=== PATIENT | male | born 1950 ===

== ENCOUNTER 2017-06-24 18:12 | Inpatient (IN) | payer MEDICARE, OTHER ==
[2017-06-24] VITALS (9 sets, daily range): BP systolic 127–149; BP diastolic 58–93; BMI 33.5
[~2017-06-24] VITALS: Ht 180.3 cm; Wt 110.0 kg
--- NOTE | ~2017-06-24 | CN ---
PATIENT NAME:AUGUSTINA FLOWERS MEDICAL RECORD: [id number] : 54 LOCATION:[id number] ADMIT DATE: 06/24/17 ACCOUNT: [id number] CONSULTING PHYSICIAN: RON HADLEY MD REFERRING PHYSICIAN: BRUNILDA JARRELL MD DATE OF CONSULTATION: 06/25/2017 HISTORY OF PRESENT ILLNESS: A 67-year-old gentleman transferred from outside hospital. He was seen there with about a 2-week history of feeling poorly, very inactive, fever, chills. He was found to have pulmonary embolus, subsequent AFib with RVR. He is currently on Cordarone drip. Pressures are stable. We are asked to see him concerning his cardiovascular status. PAST MEDICAL HISTORY: Includes; 1. History of hypertension. 2. Severe sinusitis, status post multiple interventions. 3. Gastroesophageal reflux disease. ALLERGIES: STADOL. MEDICATIONS: Include acyclovir 400 b.i.d., lisinopril 10 mg p.o. every day, aspirin 81 mg daily, Valium 10 mg p.o. t.i.d., methadone 30 mg t.i.d., Singulair 10 mg at bedtime, omeprazole 20 every day, and testosterone 30 mg every week. SOCIAL HISTORY: . He is a nonsmoker. Easily takes care of his ADLs regularly. REVIEW OF SYSTEMS: The patient reports easy bruising but reports no swollen glands. The patient reports no fever, no night sweats, no significant weight gain, no significant weight loss. No significant exercise tolerance. The patient reports no dry eyes, no irritation, no vision change. Patient reports no difficulty hearing and no ear pain. Patient reports no frequent nose bleeds or nose and sinus problems. Patient reports on arm pain on exertion. No shortness of breath while lying down. No history of heart murmur. Patient reports no cough, no wheezing or coughing up blood. Patient reports no abdominal pain, no vomiting. Normal appetite. No diarrhea and not vomiting blood. No nausea and no constipation. Patient reports no incontinence. No difficulty urinating. No hematuria. No increased frequency. Patient reports no muscle aches. No weakness, no arthralgias, no back pain. No swelling of the extremities. Patient reports no abnormal mole, no jaundice, no rashes. Reports no loss of consciousness. No weakness and no numbness. No seizures, dizziness, or headaches. The patient reports no depression, no sleep disturbance, feeling safe in a relationship and no alcohol abuse. Patient reports on fatigue. Reports no runny nose or sinus pressure. No itching, no hives, and no frequent sneezing. PHYSICAL EXAMINATION: GENERAL: Pleasant gentleman, in no acute distress, appears stated age. VITAL SIGNS: Blood pressure 131/77, pulse currently 91 and irregular. HEENT: Normocephalic, atraumatic. NECK: No JVD or bruit. HEART: Irregular. Rate is fairly well controlled. LUNGS: Good air excursion. ABDOMEN: Soft, nontender. EXTREMITIES: Pulses well preserved. There is no edema. CONSULT REPORT [id number] AUGUSTINA FLOWERS NEUROLOGIC: Grossly intact. DIAGNOSTIC DATA: ECG shows atrial fibrillation, no acute ST changes. IMPRESSION: Atrial fibrillation, rapid ventricular response, suspect this is secondary to right heart strain from the pulmonary embolus. I agree with current treatment with amiodarone. He will obviously need at least 6 months of NOAC therapy. We will load amiodarone and consider cardioversion at some point in time. TRANSINT:[id number] Voice Confirmation ID: [id number] DOCUMENT ID: [id number] RON HADLEY MD at 0823 CC: [id number] DICTATION DATE: 06/25/17 1131 FOAM TANK LAMINATOR: 06/25/17 1443 DIS IN 06/29/17 [place] [id number] [place] [id number]
--- NOTE | ~2017-06-24 | EC ---
PATIENT:AUGUSTINA FLOWERS DATE OF SERVICE: 06/24/17 SEX: M MEDICAL RECORD: [id number] DATE OF : 54 LOCATION:[place] [address] AGE OF PATIENT: 67 ADMISSION DATE: 06/24/17 REFERRING PHYSICIAN: INTERPRETING PHYSICIAN: RON HADLEY MD ECHOCARDIOGRAM REPORT ECHO CHARGES 4 ECHO COMPLETE CLINICAL DIAGNOSIS: PE/AFIB WITH RVR ECHOCARDIOGRAPHIC MEASUREMENTS (adult normal given) AC root (d.<3.7cm) 3.1 cm LV Septum d (<1.2 cm> 1.4 cm Valve Excursion 2. cm LV Septum (systole) 02.1 cm Left Atria (s.<4.0cm> 3.6 cm LVPW d(<1.2cm) 1.5 cm RV (d.<2.3cm) 3.6 cm LVPW (sytole) 1.9 cm LV diastole(<5.6CM) 4.4 cm MV E-F(>70mm/sec) cm LV systole 2.4 cm LVOT Diameter 1.9 cm MV exc.(>10mm) 1.4 cm Est.ejection fraction (50-75%) % Pericardial Effusion N DOPPLER: LVIT cm/sec A 101 cm/sec E cm/sec LA cm/sec RVSP 20 mmHg LVOT 86 cm/sec AOP1/2T m/s Asc. Ao 138 cm/sec RVOT 89 cm/sec RA cm/sec PA 128 cm/sec AV Gradient Peak 7.60 mmHg AV Mean 3.54 mmHg AV Area 2.1 cm MV Gradient Peak 5.69 mmHg MV Mean 2.23 mmHg MV Area cm COMMENTS: Mortar Mixer Operator: 2 DOMINGO MONSIVAIS Gate Technician: 3 Dr. Rincon TAPE# PACS DATE OF SERVICE: 06/25/2017 Adequate 2D echo, color flow and spectral Doppler, and M-mode. No LVH. LV internal dimensions are normal. Wall motion is normal. EF is greater than or equal to 55%. Aortic valve sclerosis without stenosis by Doppler interrogation. The left atrium is normal. Mitral valve shows no prolapse. Trace MR. Right-sided chambers grossly normal. Trace TR. TRANSINT:[id number] Voice Confirmation ID: [id number] DOCUMENT ID: [id number] ECHOCARDIOGRAM REPORT [id number] AUGUSTINA FLOWERS 06/29/2017 Edited to correct date of service, dmm. RON HADLEY MD at 0823 CC: [id number] DICTATION DATE: 06/26/17 1050 FINAL CLEANER: 06/26/17 1255 DIS IN 06/29/17 [place] [id number] [place] [id number]
[2017-06-24] MEDS ORDERED: VITAMIN B-1000 MCG/M IM (22:37)
[2017-06-24] MEDS ORDERED: AXIRON30 MG/1.5 (22:38)
[2017-06-24] MEDS ORDERED: VALIUM10 MG PO (22:58)
[2017-06-24] MEDS ORDERED: METHADONE 10 MG10 MG PO (22:59)
[2017-06-24] MEDS ORDERED: MIRALAX17 GM PO (23:00)
[2017-06-24] MEDS ORDERED: PRINIVIL20 MG PO (23:00)
[2017-06-24] MEDS ORDERED: ZOVIRAX400 MG PO (23:01)
[2017-06-24] MEDS ORDERED: PROBIOTIC1 EAC1 PO (23:01)
[2017-06-24] MEDS ORDERED: BAYER CHEWABLE81 MG PO (23:01)
[2017-06-24] MEDS ORDERED: SINGULAIR10 MG PO (23:02)
[2017-06-24] MEDS ORDERED: OMEPRAZOLE20 M1 PO (23:03)
[2017-06-24] MEDS ORDERED: PREDNISOLONE 110 ML RIGHT EYE (23:04)
[2017-06-25] VITALS (26 sets, daily range): BP systolic 112–152; BP diastolic 73–93
[2017-06-25 05:02] LABS: BASOPHILS 0.4 % (0-2); EOSINOPHILS 5.2 % (0-7); HEMATOCRIT 45.2 % (42.0-54.0); HEMOGLOBIN 14.5 g/dL (13.5-17.5); IMMATURE GRANULOCYTES 0.6 % (0-5); LYMPHOCYTES 33.4 % (15-50); MCH 26.8 pg (26.0-34.0); MCHC 32.1 g/dL (31.0-37.0); MCV 83.5 fL (80.0-100.0); MEAN PLATELET VOLUME 10.3 fL (7.4-10.4); MONOCYTES 13.4 % (2-11); PLATELET COUNT 187 10x3/uL (130-400); RBC 5.41 10x6/uL (4.20-6.10); RDW 16.6 % (11.5-14.5); WBC 6.9 10x3/uL (4.8-10.8)
[2017-06-25 05:20] LABS: ANION GAP 17.2 mmol/L (8-16); CALCIUM 8.6 mg/dL (8.5-10.1); CARBON DIOXIDE 23.8 mmol/L (21.0-32.0); CREATININE - SERUM 1.3 mg/dL (0.6-1.3); MAGNESIUM - SERUM 2.4 mg/dL (1.8-2.4)
[2017-06-25 10:31] LABS: % SATURATION 16 % (15-55); IRON 47 ug/dl (35-150); TOTAL IRON BIND CAPACITY 287 ug/dl (260-445); UNSAT IRON BIND CAPACITY 240 ug/dl (150-375)
[2017-06-25 10:34] LABS: C-REACTIVE PROTEIN 4.9 mg/dL (0.0-0.9)
[2017-06-25 11:10] LABS: ERYTHROCYTE SEDIMENTATION RATE 17 mm/hr (0-20)
[2017-06-26] VITALS (15 sets, daily range): BP systolic 102–145; BP diastolic 49–92; Ht 180.3 cm; Wt 110.0 kg
[2017-06-26 04:17] LABS: BASOPHILS 0.4 % (0-2); EOSINOPHILS 4.5 % (0-7); HEMOGLOBIN 14.2 g/dL (13.5-17.5); IMMATURE GRANULOCYTES 0.4 % (0-5); LYMPHOCYTES 25.9 % (15-50); MCH 27.2 pg (26.0-34.0); MCHC 32.3 g/dL (31.0-37.0); MCV 84.3 fL (80.0-100.0); MEAN PLATELET VOLUME 11.1 fL (7.4-10.4); MONOCYTES 14.2 % (2-11); NEUTROPHILS 54.6 % (40-80); PLATELET COUNT 219 10x3/uL (130-400); RBC 5.22 10x6/uL (4.20-6.10); RDW 16.3 % (11.5-14.5); WBC 7.1 10x3/uL (4.8-10.8)
[2017-06-26 04:33] LABS: ANION GAP 13.5 mmol/L (8-16); CALCIUM 8.8 mg/dL (8.5-10.1); CARBON DIOXIDE 27.6 mmol/L (21.0-32.0); CREATININE - SERUM 1.2 mg/dL (0.6-1.3); POTASSIUM - SERUM 4.1 mmol/L (3.5-5.1)
[2017-06-27] VITALS (14 sets, daily range): BP systolic 110–135; BP diastolic 57–79
[2017-06-27 04:51] LABS: BASOPHILS 0.1 % (0-2); EOSINOPHILS 5.5 % (0-7); HEMATOCRIT 44.9 % (42.0-54.0); HEMOGLOBIN 14.2 g/dL (13.5-17.5); IMMATURE GRANULOCYTES 0.3 % (0-5); LYMPHOCYTES 26.4 % (15-50); MCH 26.9 pg (26.0-34.0); MCHC 31.6 g/dL (31.0-37.0); MONOCYTES 15.6 % (2-11); NEUTROPHILS 52.1 % (40-80); PLATELET COUNT 215 10x3/uL (130-400); RBC 5.28 10x6/uL (4.20-6.10); RDW 16.3 % (11.5-14.5); WBC 7.1 10x3/uL (4.8-10.8)
[2017-06-27 05:04] LABS: ANION GAP 12.1 mmol/L (8-16); CALCIUM 8.9 mg/dL (8.5-10.1); CARBON DIOXIDE 29.1 mmol/L (21.0-32.0); CREATININE - SERUM 1.3 mg/dL (0.6-1.3); POTASSIUM - SERUM 4.2 mmol/L (3.5-5.1)
[2017-06-27 08:20] LABS: FOLATE (FOLIC ACID) - SERUM 15.7 ng/mL (>3.0)
[2017-06-28] VITALS (16 sets, daily range): BP systolic 92–127; BP diastolic 53–82
[2017-06-28 05:44] LABS: BASOPHILS 0.3 % (0-2); EOSINOPHILS 5.3 % (0-7); HEMATOCRIT 43.5 % (42.0-54.0); HEMOGLOBIN 13.9 g/dL (13.5-17.5); IMMATURE GRANULOCYTES 0.4 % (0-5); LYMPHOCYTES 31.2 % (15-50); MCH 27.1 pg (26.0-34.0); MCV 84.8 fL (80.0-100.0); MEAN PLATELET VOLUME 11.2 fL (7.4-10.4); MONOCYTES 16.8 % (2-11); PLATELET COUNT 228 10x3/uL (130-400); RBC 5.13 10x6/uL (4.20-6.10); RDW 16.2 % (11.5-14.5); WBC 7.9 10x3/uL (4.8-10.8)
[2017-06-28 05:57] LABS: ANION GAP 12.9 mmol/L (8-16); CALCIUM 8.9 mg/dL (8.5-10.1); CARBON DIOXIDE 28.6 mmol/L (21.0-32.0); CREATININE - SERUM 1.4 mg/dL (0.6-1.3); POTASSIUM - SERUM 4.5 mmol/L (3.5-5.1)
[2017-06-29 03:00] VITALS: BP 122/76
[2017-06-29 04:30] LABS: BASOPHILS 0.4 % (0-2); EOSINOPHILS 4.9 % (0-7); HEMATOCRIT 44.4 % (42.0-54.0); HEMOGLOBIN 14.2 g/dL (13.5-17.5); IMMATURE GRANULOCYTES 0.4 % (0-5); LYMPHOCYTES 34.6 % (15-50); MCH 27.4 pg (26.0-34.0); MCV 85.5 fL (80.0-100.0); MONOCYTES 13.7 % (2-11); PLATELET COUNT 251 10x3/uL (130-400); RBC 5.19 10x6/uL (4.20-6.10); RDW 15.9 % (11.5-14.5); WBC 8.2 10x3/uL (4.8-10.8)
[2017-06-29 04:47] LABS: ANION GAP 11.3 mmol/L (8-16); CALCIUM 8.9 mg/dL (8.5-10.1); CARBON DIOXIDE 30.8 mmol/L (21.0-32.0); CREATININE - SERUM 1.3 mg/dL (0.6-1.3); POTASSIUM - SERUM 4.1 mmol/L (3.5-5.1)
[2017-06-29 07:00] VITALS: BP 111/72
[2017-06-29 09:00] VITALS: BP 118/70
[2017-06-29 11:00] VITALS: BP 131/88
[2017-06-29] MEDS ORDERED: XARELTO15 MG PO (14:16)
[2017-06-29] MEDS ORDERED: XARELTO20 MG PO (14:19)
[2017-06-29] MEDS ORDERED: CORDARONE200 MG PO (14:20)
[2017-06-29] MEDS ORDERED: CARDIZEM CD180 MG PO (14:20)
[2017-06-29 15:00] VITALS: BP 142/64
== END 2017-06-29 15:30 | disposition home or self-care (01) | DRG 175 ==
LOC: D.CVICU 18:12
PROVIDERS: Internal Medicine Nephrology
DX: I26.99 Other pulmonary embolism without acute cor pulmonale (principal); J96.01 Acute respiratory failure with hypoxia; N17.9 Acute kidney failure, unspecified; K21.9 Gastro-esophageal reflux disease without esophagitis; I10 Essential (primary) hypertension; E78.5 Hyperlipidemia, unspecified; J32.9 Chronic sinusitis, unspecified; I48.91 Unspecified atrial fibrillation; Z79.01 Long term (current) use of anticoagulants